=== PATIENT | female | born 1945 | race Caucasian/White ===

== ENCOUNTER 2022-06-08 05:00 | Inpatient (IN) | payer OTHER, MEDICAID ==
[2022-06-08] VITALS (13 sets, daily range): BP systolic 81–147; BP diastolic 36–93
[~2022-06-08] VITALS: Ht 160 cm; Wt 63.5 kg
--- NOTE | 2022-06-08 05:04 | NUR ---
[facility] B[facility] #[facility]
--- NOTE | 2022-06-08 05:06 | NUR ---
Patient resting in bed, A/Ox1, chest rise and fall symmetrical, no s/s of pain or s/s of distress, on monitor.
[2022-06-08] MEDS ORDERED: NACL 0.9% 2,000 ML IV ONE (05:10)
[2022-06-08] MEDS ORDERED: ACETAMINOPHEN 650 MG SUPP RC ONE (05:10)
--- NOTE | 2022-06-08 05:24 | NUR ---
Respiratory Therapist at bedside for respiratory intervention
--- NOTE | 2022-06-08 05:26 | NUR ---
X-Ray at bedside.
[2022-06-08] MEDS ORDERED: cefTRIAXone 1,000 MG VIAL ONE (05:30)
[2022-06-08 05:59] LABS: BASOPHILS # (AUTO) 0.2 K/uL (0.00-0.22); BASOPHILS % (AUTO) 0.8 % (0.0-2.0); EOSINOPHILS % (AUTO) 0.1 % (0.0-4.0); HEMATOCRIT 39.5 % (36-48); HEMOGLOBIN 12.5 g/dL (12.0-16.0); LYMPHOCYTES # (AUTO) 2.9 K/uL (2.5-16.5); LYMPHOCYTES % (AUTO) 14.8 % (20.5-51.1); MEAN CORPUSCULAR HEMOGLOBIN 31 pg (27-31); MEAN CORPUSCULAR HGB CONC 32 g/dL (33-37); MEAN CORPUSCULAR VOLUME 98.9 fL (80-94); MONOCYTES % (AUTO) 5.1 % (1.7-9.3); NEUTROPHILS # (AUTO) 15.5 K/uL (1.8-7.7); NEUTROPHILS % (AUTO) 79.2 % (42.2-75.2); PLATELET COUNT (AUTO) 247 K/uL (140-450); RED CELL DISTRIBUTION WIDTH 15.1 % (11.6-13.7); WHITE BLOOD COUNT (AUTO) 19.6 K/uL (4.8-10.8)
[2022-06-08 06:18] LABS: APPEARANCE,URINE CLEAR (CLEAR); BILIRUBIN,URINE 1+ (NEGATIVE); BLOOD, URINE NEGATIVE (NEGATIVE); COLOR,URINE YELLOW (YELLOW); LEUKOCYTE ESTERASE ,URINE NEGATIVE (NEGATIVE); NITRITE, URINE NEGATIVE (NEGATIVE); UGLUCOSE NEGATIVE (NEGATIVE)
[2022-06-08] MEDS ORDERED: ASPI-1822 PO (06:19)
[2022-06-08] MEDS: NOREPINEPHRINE 4 MG in DEXTROSE 5% 250 ML IV ONE ×2 (06:25→06:58)
[2022-06-08 06:28] LABS: ALBUMIN 2.4 g/dL (3.4-5.0); ANION GAP 12.7 (8-16); ASPARTATE AMINOTRANSFERASE 58 U/L (15-37); CARBON DIOXIDE 29.3 mmol/L (21-32); CHLORIDE 127 mmol/L (98-107); CREATININE 1.3 mg/dL (0.6-1.3); GLUCOSE 113 mg/dL (74-106); TOTAL BILIRUBIN 0.6 mg/dL (0.0-1.0); UREA NITROGEN, BLOOD 51 mg/dL (7-18)
[2022-06-08 06:32] LABS: SODIUM SERUM 165 mmol/L (136-145)
[2022-06-08] MEDS ORDERED: NOREPINEPHRINE 4 MG/4 ML VIAL IV ONE (06:52)
[2022-06-08] MEDS ORDERED: MEMA10TA PO (06:57)
[2022-06-08] MEDS ORDERED: DONE10TA10 PO (06:57)
[2022-06-08] MEDS ORDERED: QUET25TA46 PO (06:57)
[2022-06-08] MEDS ORDERED: LISI-486 PO (06:57)
[2022-06-08] MEDS ORDERED: SIMV-371 PO (06:57)
[2022-06-08] MEDS ORDERED: CALC-575 PO (06:57)
[2022-06-08] MEDS ORDERED: SENN-74 PO (06:57)
[2022-06-08] MEDS ORDERED: MULT-2253 PO (06:57)
[2022-06-08] MEDS ORDERED: DIVA125E1 (06:57)
[2022-06-08] MEDS ORDERED: ACET-2619 PO (06:57)
[2022-06-08] MEDS ORDERED: FERR325E14 PO (06:57)
--- NOTE | 2022-06-08 07:03 | NUR ---
verbally informed of patient's vital signs and repeat vital signs. Verbally informed by to "hold Norepinepherine drip."
--- NOTE | 2022-06-08 07:33 | NUR ---
Change of shift report given to AM shift Nurse Eliecer DEGROOT. Eliecer DEGROOT verbalized understanding of report, no further questions.
[2022-06-08] MEDS ORDERED: ASPIRIN 81 MG TAB.CHEW PO ONE (08:00)
--- NOTE | 2022-06-08 08:02 | NUR ---
ASSUMED PATIENT CARE, CONCUR WITH PREVIOUS NURSING ASSESSMENTS.
[2022-06-08] MEDS ORDERED: ACETAMINOPHEN 325 MG TAB PO PRN (08:50)
[2022-06-08] MEDS ORDERED: ALBUTEROL SULFATE/IPRATROPIU 3 ML SOL IH PRN (08:50)
[2022-06-08] MEDS ORDERED: NOREPINEPHRINE 8 MG in DEXTROSE 5% 250 ML IV PRN (08:50)
[2022-06-08] MEDS ORDERED: DOCUSATE SODIUM 100 MG GELCAP PO PRN (08:50)
[2022-06-08] MEDS ORDERED: NACL 0.9% 1,000 ML IV SCH (08:50)
[2022-06-08] MEDS ORDERED: POTASSIUM CHLORIDE 10 MEQ TABER PO PRN (08:50)
[2022-06-08] MEDS ORDERED: guaiFENesin DM 200/20 MG-10 ML 10 ML UDC PO PRN (08:50)
[2022-06-08] MEDS ORDERED: ONDANSETRON 4 MG/2 ML VIAL IM/IVP PRN (08:50)
[2022-06-08] MEDS ORDERED: ZOLPIDEM 5 MG TAB PO PRN (08:50)
[2022-06-08] MEDS ORDERED: HYDROcodone/APAP 7.5/325 MG 1 TAB PO PRN (08:50)
[2022-06-08] MEDS ORDERED: DOXYCYCLINE 100 MG VIAL IV ONE (08:53)
[2022-06-08] MEDS: PANTOPRAZOLE 40 MG TABEC PO SCH (09:00)
[2022-06-08] MEDS ORDERED: DOXYCYCLINE 100 MG in DEXTROSE 5% 100 ML IV SCH (09:00)
[2022-06-08 09:15] LABS: BASOPHILS # (AUTO) 0.1 K/uL (0.00-0.22); BASOPHILS % (AUTO) 0.6 % (0.0-2.0); EOSINOPHILS % (AUTO) 0.1 % (0.0-4.0); HEMATOCRIT 34.7 % (36-48); HEMOGLOBIN 10.8 g/dL (12.0-16.0); LYMPHOCYTES # (AUTO) 2.4 K/uL (2.5-16.5); LYMPHOCYTES % (AUTO) 13.5 % (20.5-51.1); MEAN CORPUSCULAR HEMOGLOBIN 31 pg (27-31); MEAN CORPUSCULAR HGB CONC 31 g/dL (33-37); MEAN CORPUSCULAR VOLUME 101.1 fL (80-94); MONOCYTES % (AUTO) 5.4 % (1.7-9.3); NEUTROPHILS # (AUTO) 14.5 K/uL (1.8-7.7); NEUTROPHILS % (AUTO) 80.4 % (42.2-75.2); PLATELET COUNT (AUTO) 200 K/uL (140-450); RED BLOOD CELL COUNT(AUTO) 3.43 MIL/uL (4.20-5.40); RED CELL DISTRIBUTION WIDTH 15.5 % (11.6-13.7); WHITE BLOOD COUNT (AUTO) 18.1 K/uL (4.8-10.8)
--- NOTE | 2022-06-08 09:19 | NUR ---
PATIENT HAS BEEN SCREENED AND CATEGORIZED MODERATE NUTRITION RISK. PATIENT WILL BE SEEN WITHIN 3-5 DAYS OF ADMISSION. REVIEWED BY ERICH DENNIS RD Addendum: 06/09/22 at [address] [facility] REFERRAL RECEIVED FOR UNHEALED WOUNDS ON 06/09/22. PATIENT HAS BEEN RESCREENED HIGH RISK AND WILL BE SEEN WITHIN 1-2 DAYS OF RECEIVED REFERRAL
[2022-06-08 09:33] LABS: PROTHROMBIN TIME 11.6 secs (10.8-13.4)
[2022-06-08 10:08] LABS: CHOL/HDL RATIO 4.2 (1-4.5); FREE T4 (FREE THYROXINE) 0.94 ng/dL (0.76-1.46); MAGNESIUM 2.1 mg/dL (1.8-2.4); PHOSPHORUS 3.1 mg/dL (2.5-4.9); THYROID STIMULATING HORMONE 0.44 uIU/mL (0.34-3.74)
[2022-06-08] MEDS ORDERED: NACL 0.9% 2,000 ML IV SCH (10:25)
--- NOTE | 2022-06-08 11:17 | NUR ---
Patient will be admitted to care of DR LEWIS. Admited to ICU. Will go to room 3. Belongings list completed. Report to RUSS.
--- NOTE | 2022-06-08 11:35 | NUR ---
PHONE CALL TO , LOC HERNANDEZ [phone], TO NOTIFY OF PT STATUS. STATED HE WILL VISIT SHORTLY. NO FURTHER QUESTIONS AT THIS TIME.
[2022-06-08] MEDS: DEXTROSE 5% 1,000 ML IV SCH ×2 (11:40→20:17)
[2022-06-08] MEDS: ALBUTEROL SULFATE/IPRATROPIU 3 ML SOL IH SCH ×2 (12:53→19:26)
[2022-06-09] VITALS (17 sets, daily range): BP systolic 80–145; BP diastolic 36–86
[2022-06-09] MEDS: DEXTROSE 5% 1,000 ML IV SCH ×3 (05:11→18:30)
[2022-06-09 05:32] LABS: BASOPHILS # (AUTO) 0.1 K/uL (0.00-0.22); BASOPHILS % (AUTO) 0.4 % (0.0-2.0); EOSINOPHILS # (AUTO) 0.5 K/uL (0-0.4); EOSINOPHILS % (AUTO) 2.8 % (0.0-4.0); HEMATOCRIT 30.6 % (36-48); HEMOGLOBIN 9.9 g/dL (12.0-16.0); LYMPHOCYTES # (AUTO) 2.5 K/uL (2.5-16.5); MEAN CORPUSCULAR HEMOGLOBIN 32 pg (27-31); MEAN CORPUSCULAR HGB CONC 33 g/dL (33-37); MONOCYTES # (AUTO) 0.8 K/uL (0.8-1.0); MONOCYTES % (AUTO) 4.8 % (1.7-9.3); PLATELET COUNT (AUTO) 172 K/uL (140-450); RED BLOOD CELL COUNT(AUTO) 3.15 MIL/uL (4.20-5.40); RED CELL DISTRIBUTION WIDTH 14.2 % (11.6-13.7); WHITE BLOOD COUNT (AUTO) 16.9 K/uL (4.8-10.8)
[2022-06-09 06:07] LABS: ANION GAP 12.9 (8-16); CARBON DIOXIDE 24.1 mmol/L (21-32); CHLORIDE 120 mmol/L (98-107); CREATININE 0.7 mg/dL (0.6-1.3); GLUCOSE 132 mg/dL (74-106); SODIUM SERUM 154 mmol/L (136-145); UREA NITROGEN, BLOOD 27 mg/dL (7-18)
--- NOTE | 2022-06-09 07:30 | NUR ---
RECEIVED REPORT FROM DUMPER. PT IN BED WITH HOB ELEVATED. AOX1, CONFUSED, RESPONDS TO NAME, OPENS EYES AND TRACKS, SPEECH IS MUMBLED. NO RESPIRATORY DISTRESS ON ROOM AIR. NO S/S OF PAIN. OFF LEVO SINCE 0500
[2022-06-09] MEDS ORDERED: KCL 20 MEQ IN 100 mL PREMIX 200 ML IV PRN (08:05)
[2022-06-09 08:08] LABS: T4 (THYROXINE) 5.3 ug/dL (4.5-12.0)
[2022-06-09] MEDS: PANTOPRAZOLE 40 MG TABEC PO SCH (08:36)
[2022-06-09] MEDS: ASPIRIN 81 MG TAB.CHEW PO SCH (08:36)
--- NOTE | 2022-06-09 09:00 | NUR ---
DUE MEDS GIVEN. ABSORBENT PAD CHANGED. TURNED AND REPOSITIONED. ASSISTED WITH BREAKFAST, ONLY ATE 10%
[2022-06-09] MEDS: ALBUTEROL SULFATE/IPRATROPIU 3 ML SOL IH SCH ×3 (09:11→19:18)
[2022-06-09] MEDS: AZITHROMYCIN 500 MG in DEXTROSE 5% 250 ML IV SCH (10:24)
--- NOTE | 2022-06-09 12:37 | NUR ---
06/09/22 RD INITIAL ASSESSMENT COMPLETED PLEASE REFER TO NUTRITION ASSESSMENT UNDER CARE ACTIVITY FOR ESTIMATED NUTRITIONAL NEEDS. 1. RECOMMEND ADDING ENSURE BID FOR WOUND SUPPORT TO PUREE DIET TOLERATED - ENSURE PROVIDES 700 KCAL, 40GM PROTEIN DAILY. 2. MONITOR GI, PO INTAKE, AND LAB VALUES. 3. RD TO FOLLOW-UP 2-3 DAYS, HIGH RISK REVIEWED BY ERICH DENNIS RD
--- NOTE | 2022-06-09 12:40 | NUR ---
DC PLANNING ASSESSMENT COMPLETE PLEASE REFER TO ASSESSMENT FOR ADDITIONAL DETAILS PTS LOC MELENDEZ DC PLAN IS FOR PT TO BE DC'D TO [facility]. LOC REPORTS FOR[facility]LY [facility] WILL BE IN TO ASSESS PT AT 130PM. SW ENDORSED TO PTS CM. Addendum: 06/09/22 at 1241 by Kp Cunningham SS Amended: Links added.
--- NOTE | 2022-06-09 13:34 | NUR ---
WOUND CARE NOTE: SKIN ASSESSMENT DONE ON THIS 77 Y/O PT. AAX2, NO ACUTE DISTRESS DURING ASSESSMENT. PT ADMITTED WITH PRESSURE INJURY UN-STAGEABLE TO BILATERAL HEELS. SACRALCOCCYX SKIN MOIST AND INTACT. NO EDEMA TO BLE. PEDAL PULSES PRESENT AND NORMAL. INCONTINENT OF BOWEL AND BLADDER. FOAM DRESSING TO SACRALCOCCYX. POC DISCUSSED WITH PRIMARY RN FAVIO. -LEFT HEEL 3X2CM 100% BLACK STABLE ESCHAR TISSUE WOUND EDGE ATTACHED, PATTIE WOUND SKIN TOWARD 6 O'CLOCK DIRECTION A SUPERFICIAL SKIN TEAR 0.5X0.5CM WOUND BED,MOIST AND PINK, NO ODOR. -RIGHT HEEL 4X4CM 100% BLACK STABLE ESCHAR TISSUE WOUND EDGE ATTACHED, PATTIE WOUND SKIN DRY INTACT,MUSHY. RECOMMENDATIONS -PATTIE-CARE Q2H -APPLY FOAM DRESSING TO SACRALCOCCYX QD AND PRN FOR PREVENTION -BILATERAL HEELS APPLY SOAKED 4X4 GAUZES BETADINE SOLUTION, COVER WITH DRY DRESSING, WRAP WITH KERLIX ROLLS AND SECURED WITH TAPE QD AND PRN IF SOILING. -APPLY HEEL RAISERS TO HEELS AND OFFLOADING WITH PILLOWS -PRESSURE REDISTRIBUTION SURFACE THERAPY Reach Clothing ISOFLEX TORO MATTRESS -POSITIONING: TURN AND REPOSITION PATIENT Q 2H OR SOONER USE PILLOWS TO KEEP BONY PROMINENCES FROM DIRECT CONTACT WITH SURFACES USE REPOSITIONING WEDGES TO PROVIDE 30-DEGREE ANGLE FOR SIDE LYING POSITIONS OFFLOADING OR FOAM DRESSING TO ALL TUBING TO PREVENT MEDICAL DEVICES RELATED PRESSURE INJURY -RE-EVALUATING AND MANAGING INCONTINENCE MONITOR SKIN CONDITION DURING POSITION CHANGE DO NOT MASSAGE REDNESS, BONY PROMINENCES FREQUENT PATTIE-CARE AND PROVIDE BARRIER CREAMS PRN IF SOILING MOISTURE CONTROL BY ABSORBENT PAD TO WICK AND HOLD MOISTURE KEEP SKIN DRY AND PROTECT FROM FRICTION -MANAGE FRICTION/SHEAR/MOBILITY KEEP HOB AT THE LOWEST LEVEL OF ELEVATION NO MORE THAN 30 DEGREE UNLESS OTHERWISE CONTRAINDICATED USE LIFT SHEET OR TRANSFER DEVICE TO MOVE PATIENT AND PREVENT LATERAL SHEER. PROTECT HEELS, ELBOWS BONY PROMINENCES WITH SKIN BERRIES OR FOAM DRESSING IF EXPOSED TO FRICTION OFFLOAD BILATERAL HEELS BY PLACING PILLOWS UNDER CALVES AT ALL TIMES, UNLESS OTHERWISE CONTRAINDICATED -NUTRITION: PLEASE FOLLOW RD RECOMMENDATIONS AND OFFER NUTRITION SUPPLEMENTS IF ORDERED. PLEASE CONTACT WOUND CARE NURSE FOR ANY QUESTION AND CHANGE OF WOUND CONDITION.
[2022-06-09] MEDS ORDERED: FOAM DRESSING TP PRN (13:50)
--- NOTE | 2022-06-09 14:11 | NUR ---
DC PLANNING A 77 Y.O.MALE PATIENT FROM [facility] ADMITTED FOR PNEUMONIA,SEPTIC SHOCK,ELEVATED TROPONIN,HYPONATREMIA,MALNUTRITION AND DEHYDRATION WITH COMPLAINTS OF WORSENING COUGH AND FEVER.ON LEVOPHED.WBC 19.6.CEFOXITIN AND AZITHROMYCIN ON BOARD.PULMO AND CARDIO FOLLOWING.DC PLAN- [facility]CHARGE TO [facility] PER FAMILY REQUEST.CM TO FOLLOW. Addendum: 06/11/22 at 1309 by FELIX OTERO CM RECEIVED ORDER FOR PATIENT TO GO TO SNF FOR PT. FAXED TO [facility]. SPOKE WITH JASMYN FROM [facility] LOCATED AT [address] [place] [address] [place] [id number] WHO WAS ABLE TO ACCEPT PATIENT. PATIENT WILL BE GOING TO ROOM [facility] UNDER DR KWAN. Addendum: 06/11/22 at 1351 by FELIX OTERO CM TRANSPORTATION SET UP WITH [facility] WITH A 1500 MANAGER FOOD BEVERAGE TIME. NURSE AND LOC AWARE OF THE ABOVE INFORMATION.
--- NOTE | 2022-06-09 15:30 | NUR ---
SBP 80s TO LOW 90s. MAP 50-60. DR ANDERSON AND DR IRENE NOTIFIED. ORDERED TO HOLD DOWNGRADE TO TELE, 500CC NS BOLUS, AND TO RESTART LEVOPHED IF BOLUS INEFFECTIVE
[2022-06-09] MEDS ORDERED: NOREPINEPHRINE 4 MG/4 ML VIAL IV ONE (15:46)
[2022-06-09] MEDS ORDERED: NACL 0.9% 500 ML IV SCH (16:05)
--- NOTE | 2022-06-09 17:30 | NUR ---
SBP IN UPPER 90s AFTER BOLUS. WILL KEEP IN ICU PER DR IRENE AND DR ANDERSON
--- NOTE | 2022-06-09 19:10 | NUR ---
TRANSFER OF CARE FROM DAY SHIFT, REPORT RECEIVED FROM FAVIO. PATIENT RECEIEVED AWAKE AND ALERT x1; PATIENT IS SITTING IN BED WATCHING TV. PATIENT HAS PICC LINE ALISE, WITH D5 RUNNING AT 125ML/HR. PATIENT HAS GARZA IN PLACE, AND BILATERAL HEEL DTI. VITAL SIGNS AT START OF SHIFT ARE FOLLOWS: T = 97.7, HR = 81, R = 24, O2 SAT = 98%, AND BP = 129/87. WILL CONTINUE TO MONITOR PATIENT FOR ANY CHANGE IN CONDITION AND NOTIFY MD INDICATED.
[2022-06-10] VITALS (10 sets, daily range): BP systolic 84–167; BP diastolic 40–111
[2022-06-10] MEDS: DEXTROSE 5% 1,000 ML IV SCH ×3 (02:25→15:57)
[2022-06-10 05:08] LABS: BASOPHILS # (AUTO) 0.1 K/uL (0.00-0.22); BASOPHILS % (AUTO) 0.4 % (0.0-2.0); EOSINOPHILS # (AUTO) 0.3 K/uL (0-0.4); EOSINOPHILS % (AUTO) 1.8 % (0.0-4.0); HEMATOCRIT 31.4 % (36-48); HEMOGLOBIN 10.4 g/dL (12.0-16.0); LYMPHOCYTES % (AUTO) 14.4 % (20.5-51.1); MEAN CORPUSCULAR HEMOGLOBIN 32 pg (27-31); MEAN CORPUSCULAR HGB CONC 33 g/dL (33-37); MONOCYTES # (AUTO) 0.9 K/uL (0.8-1.0); MONOCYTES % (AUTO) 6.2 % (1.7-9.3); NEUTROPHILS # (AUTO) 10.8 K/uL (1.8-7.7); NEUTROPHILS % (AUTO) 77.2 % (42.2-75.2); PLATELET COUNT (AUTO) 183 K/uL (140-450); RED CELL DISTRIBUTION WIDTH 14.2 % (11.6-13.7)
[2022-06-10 05:32] LABS: ANION GAP 13.7 (8-16); CARBON DIOXIDE 23.8 mmol/L (21-32); CHLORIDE 112 mmol/L (98-107); CREATININE 0.7 mg/dL (0.6-1.3); GLUCOSE 118 mg/dL (74-106); POTASSIUM 3.5 mmol/L (3.5-5.1); SODIUM SERUM 146 mmol/L (136-145); UREA NITROGEN, BLOOD 10 mg/dL (7-18)
--- NOTE | 2022-06-10 07:24 | NUR ---
TRANSFER OF CARE TO DAY SHIFT, CARE OF PATIENT ENDORSED TO MIKAYLA STERLING
[2022-06-10] MEDS: ALBUTEROL SULFATE/IPRATROPIU 3 ML SOL IH SCH ×3 (08:29→19:56)
[2022-06-10] MEDS: ASPIRIN 81 MG TAB.CHEW PO SCH (08:34)
[2022-06-10] MEDS: PANTOPRAZOLE 40 MG TABEC PO SCH (08:35)
[2022-06-10] MEDS: AZITHROMYCIN 500 MG in DEXTROSE 5% 250 ML IV SCH (08:35)
[2022-06-10] MEDS ORDERED: GAUZE TP SCH (13:00)
[2022-06-10] MEDS ORDERED: FOAM DRESSING TP SCH (13:00)
--- NOTE | 2022-06-10 13:40 | NUR ---
PATIENT TRANSFERRED TO TELE, PATIENT PULLED PICC LINE WHILE CHANGING HER GOWN, DR. MARIA VICTORIA De Oliveira NOTIFIED STARTED PERIPHERAL IV
--- NOTE | 2022-06-10 13:40 | NUR ---
RECEIVED REPORT FROM SMALL ARMS REPAIRER, REGARDING CARE MANAGEMENT TO PT. AWAITING PT TRANSFER TO TELEMETRY UNIT.
--- NOTE | 2022-06-10 14:00 | NUR ---
RECEIVED PT AWAKE, NON-VERBAL LYING ON THE GURNEY FROM SUPERVISOR PIG MACHINE, PT IS ON ROOM AIR, IV LINE NOTED ON THE RIGHT HAND G. 2O ON SALINE LOCK, NO SIGN OF DISTRESS NOTED AND WILL CONTINUE TO MONITOR PT.
--- NOTE | 2022-06-10 19:36 | NUR ---
ENDORSED PT TO NIGHT RN FOR CONTINUITY OF CARE, PT IS STABLE AT THIS TIME
--- NOTE | 2022-06-10 19:40 | NUR ---
PATIENT IN BED AWAKE WITH EYES OPEN, NON VERBAL. NO DISTRESS NOTED. FLACC 0. IV SITE TO RIGHT HAND INFUSING D5 125 MLS/HR. ALL SAFETY PRECAUTIONS ARE IN PLACE. CALL LIGHT WITHIN REACH. WILL CONTINUE TO MONITOR PT.
[2022-06-11] VITALS: BP 115/48
[2022-06-11] MEDS: DEXTROSE 5% 1,000 ML IV SCH (03:11)
[2022-06-11 04:00] VITALS: BP 109/46
[2022-06-11 05:33] LABS: BASOPHILS % (AUTO) 0.3 % (0.0-2.0); EOSINOPHILS # (AUTO) 0.2 K/uL (0-0.4); EOSINOPHILS % (AUTO) 1.7 % (0.0-4.0); HEMATOCRIT 29.5 % (36-48); HEMOGLOBIN 9.8 g/dL (12.0-16.0); LYMPHOCYTES % (AUTO) 18.1 % (20.5-51.1); MEAN CORPUSCULAR HEMOGLOBIN 32 pg (27-31); MEAN CORPUSCULAR HGB CONC 33 g/dL (33-37); MEAN CORPUSCULAR VOLUME 95.4 fL (80-94); MONOCYTES % (AUTO) 9.3 % (1.7-9.3); NEUTROPHILS # (AUTO) 7.9 K/uL (1.8-7.7); NEUTROPHILS % (AUTO) 70.6 % (42.2-75.2); PLATELET COUNT (AUTO) 170 K/uL (140-450); RED BLOOD CELL COUNT(AUTO) 3.09 MIL/uL (4.20-5.40); RED CELL DISTRIBUTION WIDTH 13.7 % (11.6-13.7); WHITE BLOOD COUNT (AUTO) 11.1 K/uL (4.8-10.8)
[2022-06-11 05:49] LABS: CARBON DIOXIDE 25.8 mmol/L (21-32); CHLORIDE 110 mmol/L (98-107); CREATININE 0.7 mg/dL (0.6-1.3); GLUCOSE 117 mg/dL (74-106); POTASSIUM 3.8 mmol/L (3.5-5.1); SODIUM SERUM 144 mmol/L (136-145); UREA NITROGEN, BLOOD 8 mg/dL (7-18)
--- NOTE | 2022-06-11 07:33 | NUR ---
BEDSIDE REPORT GIVEN TO AM NURSE FOR CONTINUITY OF CARE. PATIENT STABLE AT THIS TIME.
[2022-06-11] MEDS: ALBUTEROL SULFATE/IPRATROPIU 3 ML SOL IH SCH ×2 (07:57→13:34)
[2022-06-11] MEDS: PANTOPRAZOLE 40 MG TABEC PO SCH (09:00)
[2022-06-11] MEDS: AZITHROMYCIN 500 MG in DEXTROSE 5% 250 ML IV SCH (10:00)
[2022-06-11] MEDS ORDERED: AMOX-999 PO (10:22)
[2022-06-11 15:08] VITALS: BP 143/64
--- NOTE | 2022-06-11 16:08 | NUR ---
06/11/22 RD FOLLOW UP COMPLETED PLEASE REFER TO NUTRITION ASSESSMENT UNDER CARE ACTIVITY FOR ESTIMATED NUTRITIONAL NEEDS. 1. CONTINUE PUREE DIET WITH ENSURE BID - ENSURE PROVIDES 700 KCAL, 40GM PROTEIN DAILY 2. MONITOR GI, PO INTAKE, AND LAB VALUES. 3. RD TO FOLLOW-UP 3-5 DAYS, MODERATE RISK REVIEWED BY ERICH DENNIS RD
== END 2022-06-11 16:55 | DRG 871 ==
LOC: MED 05:00 → MTU 08:58 → MIC 09:18 → MTU 06-10 13:55
PROVIDERS: ADMIT Family Medicine; ATTEND Family Medicine
PROC: 02HV33Z Insertion of Infusion Device into Superior Vena Cava, Percutaneous Approach (ICD-10-PCS; principal; 2022-06-08)
PROC: B548ZZA Ultrasonography of Superior Vena Cava, Guidance (ICD-10-PCS; 2022-06-08)
DX: A41.9 Sepsis, unspecified organism (principal); E43 Unspecified severe protein-calorie malnutrition; G93.41 Metabolic encephalopathy; I50.43 Acute on chronic combined systolic (congestive) and diastolic (congestive) heart failure; J69.0 Pneumonitis due to inhalation of food and vomit; R65.21 Severe sepsis with septic shock; I24.8 Other forms of acute ischemic heart disease; N17.9 Acute kidney failure, unspecified; E87.0 Hyperosmolality and hypernatremia; E86.0 Dehydration; I11.0 Hypertensive heart disease with heart failure; Z68.24 Body mass index [BMI] 24.0-24.9, adult; F03.90 Unspecified dementia, unspecified severity, without behavioral disturbance, psychotic disturbance, mood disturbance, and anxiety; Z20.822 Contact with and (suspected) exposure to COVID-19; R74.01 Elevation of levels of liver transaminase levels
CPT/HCPCS: 36415; 36600; 71045; 80048; 80053; 81003; 82150; 82550; 82553; 82803; 82948; 83036; 83605; 83690; 83735; 83880; 84100; 84436; 84439; 84443; 84479; 84484; 85025; 85610; 85730; 87040; 87070; 87081; 87086; 87186; 87205; 87420; 94640; 96361; 96365; 96367; 99291; J0456; J0696; J3480; J3490; J7030; J7060; Q0092